=== PATIENT | female | born 1970 | race Caucasian/White ===

== ENCOUNTER 2016-07-15 10:35 | Emergency (ER) | payer BC ==
[~2016-07-15] VITALS: Ht 175.3 cm; Wt 94.3 kg
[2016-07-15 10:37] VITALS: BP 140/99
[2016-07-15] MEDS ORDERED: DIPHTH,PERTUSS(ACELL),TET TOX 0.5 ML DISP.SYRIN. VAX IM ONE (11:30)
[2016-07-15] MEDS ORDERED: HYDROCODONE/APAP 5/325MG TABLET. PO ONE (11:30)
[2016-07-15] MEDS ORDERED: FAMOTIDINE 20 MG TABLET. PO ONE (11:30)
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
[2016-07-15] MEDS ORDERED: HYDR-971 PO (13:37)
== END 2016-07-15 13:47 | disposition home or self-care (01) ==
LOC: ER 10:35
DX: S93.401A Sprain of unspecified ligament of right ankle, initial encounter (principal); S70.01XA Contusion of right hip, initial encounter; S80.211A Abrasion, right knee, initial encounter; S50.311A Abrasion of right elbow, initial encounter; Z87.442 Personal history of urinary calculi; Z98.84 Bariatric surgery status; Z90.49 Acquired absence of other specified parts of digestive tract; Z88.8 Allergy status to other drugs, medicaments and biological substances; V87.8XXA Person injured in other specified noncollision transport accidents involving motor vehicle (traffic), initial encounter; Y93.89 Activity, other specified; Y92.89 Other specified places as the place of occurrence of the external cause; Y99.8 Other external cause status
CPT/HCPCS: 73502; 73562; 73610; 90471; 90715; 99284-25